=== PATIENT | female | born 1960 ===

== ENCOUNTER 2017-08-13 05:38 | Day surgery (SDC) | payer OTHER ==
[2017-08-13] MEDS ORDERED: PERCOCET 5-3251 EACH PO (08:45)
[2017-08-13] MEDS ORDERED: RECTICARE30 GM TOP (08:45)
== END 2017-08-13 16:00 | disposition home or self-care (01) ==
LOC: CIR.AMB 05:38
DX: K64.8 Other hemorrhoids (principal)